=== PATIENT | male | born 1960 | race African-American/Black ===

== ENCOUNTER 2019-12-01 16:36 | Emergency (ER) | payer SELFPAY ==
--- NOTE | 2019-12-01 21:13 | ER Document Report ---
ED General - General Stated Complaint: FEVER/COUGH/CONGESTION Primary Care Provider: RICKY VILLAREAL DO [Primary Care Provider] - Follow up as needed Mode of Arrival: Ambulatory Information source: Patient Notes: Patient is a 59-year-old male presenting to the emergency department chief complaint of fevers and chills and cough for the past couple of days. Patient does report positive sick family contacts. Patient denies any travel history. Patient denies vomiting or diarrhea. Patient reports positive tobacco abuse. TRAVEL OUTSIDE OF THE [place] IN LAST 30 DAYS: No - HPI Onset: Other - 2-3 days Onset/Duration: Gradual, Worse Quality of pain: Throbbing Severity: Moderate Pain Level: 3 Associated symptoms: Chills, Nonproductive cough, Fever, Shortness of breath, Sore throat Exacerbated by: Movement, Walking, Other Relieved by: Denies Similar symptoms previously: No Recently seen / treated by doctor: No - Related Data Allergies/Adverse Reactions: Milk Containing Products Allergy (Verified 04/08/14 05:42) Past Medical History - General Information source: Patient - Social History Smoking Status: Current Every Day Smoker Cigarette use (# per day): Yes Smoking Education Provided: Yes Frequency of alcohol use: None Drug Abuse: None Lives with: Family Family History: Reviewed & Not Pertinent, CAD - Late-onset - Past Medical History Cardiac Medical History: Reports: Hx Hypercholesterolemia Denies: Hx Coronary Artery Disease, Hx Heart Attack, Hx Hypertension Pulmonary Medical History: Denies: Hx Tuberculosis Neurological Medical History: Reports: Hx Seizures Musculoskeletal Medical History: Reports Hx Musculoskeletal Deformity, Reports Hx Musculoskeletal Trauma Psychiatric Medical History: Reports: Hx Bipolar Disorder, Hx Depression - Immunizations Immunizations up to date: Yes Hx Diphtheria, Pertussis, Tetanus Vaccination: Yes Review of Systems - Review of Systems Notes: REVIEW OF SYSTEMS: CONSTITUTIONAL : Per HPI EENT: Per HPI CARDIOVASCULAR: Denies chest pain. RESPIRATORY: Per HPI GASTROINTESTINAL: Denies abdominal pain. Denies nausea, vomiting, or diarrhea. Denies constipation. GENITOURINARY: Denies difficulty urinating, painful urination, burning, frequency, or blood in urine. MUSCULOSKELETAL: Denies neck or back pain or joint pain or swelling. SKIN: Denies rash or skin lesions. HEMATOLOGIC : Denies easy bruising or bleeding. NEUROLOGICAL: Denies altered mental status or loss of consciousness. Denies headache. Denies weakness or paralysis or loss of use of either side. Denies problems with gait or speech. Denies sensory or motor loss. PSYCHIATRIC: Denies suicidal or homicidal ideations 10 Systems are negative unless otherwise specified above Physical Exam - Vital signs Vitals: Temp Pulse Resp BP Pulse Ox 102.8 F H 81 16 123/66 93 12/01/19 17:34 12/01/19 17:34 12/01/19 17:34 12/01/19 17:34 12/01/19 17:34 - Notes Notes: PHYSICAL EXAMINATION: GENERAL: Ill appearing HEAD: Atraumatic, normocephalic. EYES: Pupils equal round and reactive to light, extraocular movements intact, sclera anicteric, conjunctiva are normal. ENT: nares patent, oropharynx clear without exudates. Dry mucous membranes. NECK: Normal range of motion, supple without lymphadenopathy, no appreciable JVD LUNGS: Lungs demonstrate rhonchi to the bases worse with deep inspiration. HEART: Regular rate and rhythm without murmurs ABDOMEN: Soft, nontender, normal bowel sounds. No guarding, no rebound. No masses appreciated. EXTREMITIES: Active full range of motion, no pitting or edema. No cyanosis. 2+ pulses x4 NEUROLOGICAL: No focal neurological deficits. Moves all extremities spontaneously and on command. SKIN: Warm, Dry, and intact. Normal turgor, no rashes or lesions noted. Course - Re-evaluation Re-evalutation: 12/01/19 23:49 Patient has been reevaluated several times while in the emergency department. Patient was given Tylenol for his fever. Patient did receive guaifenesin for cough. I did explain to the patient the findings of positive influenza A. Patient is given prescription for Tamiflu and guaifenesin. Patient is recommended to follow-up with his family physician in the next several days return to the emergency department for worsening symptoms. - Vital Signs Vital signs: Temp Pulse Resp BP Pulse Ox 98.3 F 74 20 126/76 H 100 12/01/19 22:24 12/01/19 22:24 12/01/19 22:24 12/01/19 22:24 12/01/19 22:24 - Diagnostic Test Radiology reviewed: Reports reviewed Discharge - Discharge Clinical Impression: Influenza A, Cough Fever Qualifiers: Fever type: unspecified Qualified Code(s): R50.9 - Fever, unspecified Condition: Fair Disposition: HOME, SELF-CARE Instructions: Acetaminophen, Influenza ([facility]) [id number] Additional Instructions: Please rest drink plenty of fluids take Tylenol and Motrin as needed for aches pains and fever. Recommend following up with your primary care provider in the next couple of days. Prescriptions: Guaifenesin [Adult Tussin Chest Congestion] 100 mg PO Q6 PRN #120 liquid PRN Reason: Oseltamivir Phosphate [Tamiflu 75 mg Capsule] 75 mg PO BID #10 capsule Forms: Return to Work Referrals: RICKY VILLAREAL DO [Primary Care Provider] - Follow up as needed
[2019-12-01] MEDS ORDERED: ACETAMINOPHEN 325 MG TABLET PO ONE (21:14)
[2019-12-01 21:56] LABS: A TYPE INFLUENZA AG POSITIVE (NEGATIVE); B INFLUENZA AG NEGATIVE (NEGATIVE)
[2019-12-01] MEDS ORDERED: GUAIFENESIN SYRP 200 MG/10 ML UDC PO ONE (22:10)
--- NOTE | 2019-12-01 22:21 | RADIOLOGY REPORT (SQ) ---
EXAM DESCRIPTION: PA and lateral radiographs of the chest CLINICAL HISTORY: 59 years Male, cough COMPARISON: Single view of the chest July 27, 2016 FINDINGS: Lungs: Lungs are clear. No pneumonia or edema. No pneumothorax or pleural effusion. Mediastinum: Heart size is within normal limits. There is tortuosity of the thoracic aorta. Bones: Osseous structures are normal. IMPRESSION: No acute process. No significant interval change.
[2019-12-01 22:39] VITALS: BP 126/76
== END 2019-12-01 22:24 | disposition home or self-care (01) ==
LOC: ER 16:36
DX: J10.1 Influenza due to other identified influenza virus with other respiratory manifestations (principal); R50.9 Fever, unspecified; R05 Cough; R06.02 Shortness of breath; F17.210 Nicotine dependence, cigarettes, uncomplicated; Z91.011 Allergy to milk products
CPT/HCPCS: 71046; 87070; 87804; 87880; 99284

== ENCOUNTER 2019-12-03 19:06 | Observation (INO) | payer SELFPAY ==
[2019-12-04] MEDS ORDERED: LIDOCAINE 1% INJ-PF (10 MG/ML) 30 ML SDV NEB ONE (00:28)
[2019-12-04] MEDS ORDERED: IPRATROPIUM/ALBUTEROL 0.5-2.5 MG/3 ML AMPUL NEB ONE (00:28)
[2019-12-04] MEDS ORDERED: NORMAL SALINE 1000 ML 1,000 ML IV ONE (00:29)
[2019-12-04] MEDS ORDERED: ONDANSETRON HCL INJ/PF 4 MG/2 ML SDV IV ONE (00:29)
[2019-12-04] MEDS ORDERED: HYDROCODONE/ACETAMINOPHEN 5-325 MG TABLET PO ONE (00:29)
--- NOTE | 2019-12-04 00:31 | ER Document Report ---
ED Flu Like - General Chief Complaint: Flu Symptoms Stated Complaint: FLU SYMPTOMS Time Seen by Provider: 12/04/19 00:21 Notes: Patient is a 59-year-old male that comes emergency department for chief complaint of weakness, fever, cough, vomiting. Patient states that he started feeling ill approximately 5 days ago, he was seen 2 days ago and diagnosed with influenza A, he states that he cannot stop coughing and he attempted to eat and he vomited on 2 separate occasions today. He states that he was prescribed cough medicine but this was too expensive (this was actually Tamiflu which he could not get). He does smoke, denies history of COPD or asthma. He denies any diagnosed illnesses or daily medications. He states his only past medical history is eye surgery. He denies frequent alcohol or recreational drugs. TRAVEL OUTSIDE OF THE [place] IN LAST 30 DAYS: No - Related Data Allergies/Adverse Reactions: Milk Containing Products Allergy (Verified 04/08/14 05:42) Past Medical History - General Information source: Patient - Social History Smoking Status: Current Every Day Smoker Frequency of alcohol use: Social Drug Abuse: None Lives with: Family Family History: Reviewed & Not Pertinent, CAD - Late-onset Patient has suicidal ideation: No Patient has homicidal ideation: No - Past Medical History Cardiac Medical History: Reports: Hx Hypercholesterolemia Denies: Hx Coronary Artery Disease, Hx Heart Attack, Hx Hypertension Pulmonary Medical History: Denies: Hx Tuberculosis Neurological Medical History: Reports: Hx Seizures Musculoskeletal Medical History: Reports Hx Musculoskeletal Deformity, Reports Hx Musculoskeletal Trauma Psychiatric Medical History: Reports: Hx Bipolar Disorder, Hx Depression - Immunizations Immunizations up to date: Yes Hx Diphtheria, Pertussis, Tetanus Vaccination: Yes Review of Systems - Review of Systems Constitutional: See HPI EENT: No symptoms reported Cardiovascular: No symptoms reported Respiratory: See HPI Gastrointestinal: See HPI Genitourinary: No symptoms reported Male Genitourinary: No symptoms reported Musculoskeletal: No symptoms reported Skin: No symptoms reported Hematologic/Lymphatic: No symptoms reported Neurological/Psychological: No symptoms reported Physical Exam - Vital signs Vitals: Pulse Ox 92 12/03/19 19:53 - Notes Notes: GENERAL: Ill-appearing but still alert and cooperative HEAD: Normocephalic, atraumatic. EYES: Pupils equal, round, and reactive to light. Extraocular movements intact. ENT: Oral mucosa moist, tongue midline. Oropharynx unremarkable. Airway patent. Mild nasal congestion, nontender sinuses NECK: Full range of motion. Supple. Trachea midline. LUNGS: Frequent cough, scattered expiratory wheezes and coarse rhonchi. No respiratory distress. HEART: Regular rate and rhythm. No murmur ABDOMEN: Soft, non-tender. Non-distended. EXTREMITIES: Moves all 4 extremities spontaneously. No edema, normal radial and dorsalis pedis pulses bilaterally. No cyanosis. BACK: no cervical, thoracic, lumbar midline tenderness. No saddle anesthesia, normal distal neurovascular exam. Moves all extremities in full range of motion. NEUROLOGICAL: Alert and oriented x3. Normal speech. Cranial nerves II through XII grossly intact. PSYCH: Slightly irritable SKIN: Flushed, warm Course - Re-evaluation Re-evalutation: Patient with coarse rhonchi, frequent cough, he is somewhat ill-appearing. His vital signs are reassuring, he is not currently hypoxic on room air, he is not tachycardic or hypotensive. Chest x-ray indicates worsening, now shows pneumonia, patient was positive for influenza A 2 days ago. CBC does not show leukocytosis but does show 7% bandemia. Chemistry nonspecific, lactic acid not elevated, venous blood gas unremarkable. On reevaluation after treatments, fluids, patient is improved. He was given Tamiflu, Rocephin, azithromycin. Patient does state he feels improved, however he is still very weak, patient can barely get up and walk across the room which is very abnormal for him. Because of his extreme weakness, worsening difficulty breathing, abnormal lung sounds, and development of influenza/pneumonia discussed admission. Patient concerned about going home, very agreeable with admission. I discussed with Dr. Crouch. Discussed with Dr. Mo, patient accepted to the medical floor full admission. - Vital Signs Vital signs: Temp Pulse Resp BP Pulse Ox 98.5 F 65 20 150/90 H 95 12/04/19 06:37 12/04/19 06:37 12/04/19 06:37 12/04/19 06:37 12/04/19 06:37 - Laboratory Result Diagrams: 12/03/19 19:55 12/03/19 19:55 Laboratory results interpreted by me: 12/03/19 12/03/19 12/04/19 19:55 19:55 02:19 RDW 14.9 H Band Neutrophils % 7 H VBG pH 7.44 H VBG pCO2 34.1 L Sodium 136.6 L AST 114 H ALT 51 H Discharge - Discharge Clinical Impression: Influenza A, Wheezing, Influenza and pneumonia, Weakness Condition: Stable Disposition: ADMITTED INPATIENT Admitting Provider: Chepe (Hospitalist) Unit Admitted: Medical Floor
[2019-12-04 00:44] LABS: HEMOGLOBIN 14.3 g/dL (13.5-17.0); MEAN CORPUSCULAR HEMOGLOBIN 27.1 pg (27.0-33.4); MEAN CORPUSCULAR HGB CONC 33.3 g/dL (32.0-36.0); MEAN CORPUSCULAR VOLUME 81 fl (80-97); PLATELET COUNT 186 10^3/uL (150-450); RED BLOOD COUNT 5.28 10^6/uL (4.35-5.55); RED CELL DISTRIBUTION WIDTH 14.9 % (11.5-14.0); WHITE BLOOD COUNT 7.1 10^3/uL (4.0-10.5)
[2019-12-04 00:52] LABS: ALBUMIN 3.9 g/dL (3.5-5.0); ALKALINE PHOSPHATASE 74 U/L (38-126); ANION GAP 7 (5-19); ASPARTATE AMINO TRANSFERASE 114 U/L (17-59); BILIRUBIN,DIRECT 0.3 mg/dL (0.0-0.4); BILIRUBIN,TOTAL 0.5 mg/dL (0.2-1.3); BLOOD UREA NITROGEN 18 mg/dL (7-20); CARBON DIOXIDE 28 mmol/L (22-30); CHLORIDE 102 mmol/L (98-107); GLUCOSE 107 mg/dL (75-110); POTASSIUM 3.8 mmol/L (3.6-5.0); TOTAL PROTEIN 7.6 g/dL (6.3-8.2)
[2019-12-04 01:04] LABS: ABSOLUTE LYMPHOCYTES# (MANUAL) 1.4 10^3/uL (0.5-4.7); ABSOLUTE MONOCYTES # (MANUAL) 0.4 10^3/uL (0.1-1.4); ANISOCYTOSIS 1+; BAND NEUTROPHILS % (MANUAL) 7 % (3-5); BASOPHILS % (MANUAL) 0 % (0-2); EOSINOPHILS % (MANUAL) 0 % (0-6); LYMPHOCYTES % (MANUAL) 17 % (13-45); MONOCYTES % (MANUAL) 5 % (3-13); PLATELET COMMENT ADEQUATE; POIKILOCYTOSIS 1+; SEGMENTED NEUTROPHILS % (MAN) 68 % (42-78); TARGET CELLS 1+; TOTAL CELLS COUNTED 100; TOXIC VACUOLATION PRESENT
--- NOTE | 2019-12-04 01:05 | RADIOLOGY REPORT (SQ) ---
EXAM DESCRIPTION: XR CHEST 2 VIEWS COMPLETED DATE/TME: 12/04/2019 00:28 EXAM DESCRIPTION: CLINICAL HISTORY: worsening cough x 1 week, fevers COMPARISON: 12/01/2019 FINDINGS: Frontal and lateral views of the chest. Cardiomediastinal silhouette: Normal size and contour. Lungs: Interval development of patchy bilateral midlung airspace opacities, more confluent on the right than the left. No pneumothorax or large effusion. Bones: No acute osseous abnormality. Upper abdomen: No abnormality identified. IMPRESSION: 1. Interval development mild patchy bilateral midlung airspace opacities, more confluent on the right than the left. These are concerning for bronchopneumonia. Continued radiographic follow-up to resolution recommended.
[2019-12-04] MEDS ORDERED: CEFTRIAXONE 1 GM/D5W RTU 1 GM/50 ML RTUPB IV ONE (01:39)
[2019-12-04] MEDS ORDERED: AZITHROMYCIN 250 MG TABLET PO ONE (01:39)
[2019-12-04] MEDS ORDERED: METHYLPREDNISOLONE INJ 125 MG/2 ML SDV IV ONE (01:40)
[2019-12-04] MEDS ORDERED: OSELTAMIVIR PHOSPHATE 75 MG CAPSULE PO ONE (01:58)
[2019-12-04 02:33] LABS: VENOUS BLOOD BASE EXCESS -0.8 mmol/L; VENOUS BLOOD HCO3 22.7 mmol/L (20-32); VENOUS BLOOD PCO2 34.1 mmHg (35-63); VENOUS BLOOD PH 7.44 (7.30-7.42)
[2019-12-04] MEDS ORDERED: IPRATROPIUM/ALBUTEROL 0.5-2.5 MG/3 ML AMPUL NEB PRN (04:01)
[2019-12-04] MEDS ORDERED: ACETAMINOPHEN 325 MG TABLET PO PRN (04:01)
[2019-12-04] MEDS ORDERED: MAGNESIUM HYDROXIDE SUSP 30 ML UDCUP PO PRN (04:08)
[2019-12-04] MEDS ORDERED: ONDANSETRON HCL INJ/PF 4 MG/2 ML SDV IV PRN (04:08)
[2019-12-04] MEDS ORDERED: MAG HYDROX/AL HYDROX/SIMETH SUSP 30 ML UDCUP PO PRN (04:08)
[2019-12-04] MEDS ORDERED: KETOROLAC TROMETHAMINE INJ/PF 30 MG/1 ML SDV IV PRN (04:08)
--- NOTE | 2019-12-04 04:30 | PDOC H&P ---
History of Present Illness Admission Date/PCP: RICKY VILLAREAL DO Patient complains of: Worsening cough with nausea and vomiting History of Present Illness: MARIBELL GARCÍA is a 59 year old male who was seen in the emergency department 2 days ago and was diagnosed with influenza A. He states that he has not been feeling better in fact he has been feeling worse. In addition to a nonproductive cough he has been having nausea, vomiting and diarrhea. He reports fever and chills as well. Interestingly, he does not have an elevated white blood cell count but there are 7% bands. AST and ALT are slightly elevated. Lactic acid is normal. The patient will be admitted to the hospitalist service for influenza A with secondary pneumonia. The pneumonia is bilateral. We will continue his Tamiflu and add dual antibiotic therapy with Rocephin and azithromycin. Past Medical History Cardiac Medical History: Reports: Hyperlipidema Denies: Coronary Artery Disease, Myocardial Infarction, Hypertension Pulmonary Medical History: Denies: Tuberculosis Neurological Medical History: Reports: Seizures Endocrine Medical History: Denies: Diabetes Mellitus Type 2, Hypothyroidism Renal/ Medical History: Denies: Chronic Kidney Disease Malignancy Medical History: Reports: None GI Medical History: Denies: Cirrhosis, Gastroesophageal Reflux Disease, Hepatitis, Peptic Ulcer Disease Musculoskeltal Medical History: Denies: Arthritis, Gout Skin Medical History: Denies: Eczema, Psoriasis Psychiatric Medical History: Reports: Bipolar Disorder, Depression Hematology: Denies: Anemia Past Surgical History Past Surgical History: Reports: Other - Lens implant left eye Social History Information Source: Patient Lives with: Spouse/Significant other Smoking Status: Current Every Day Smoker Electronic Cigarette use?: No Frequency of Alcohol Use: None Hx Recreational Drug Use: No Hx Prescription Drug Abuse: No - Advance Directive Resuscitation Status: Full Code Surrogate healthcare decision maker:: The patient's would be the designated decision maker. Family History Family History: CAD - Late-onset, DM, Hypertension, Malignancy, Other - End- stage renal disease Parental Family History Reviewed: Yes Children Family History Reviewed: Yes Sibling(s) Family History Reviewed.: Yes Medication/Allergy Home Medications: Quetiapine Fumarate [Seroquel 100 mg Tablet] 350 mg PO DAILY 12/17/12 Hydrocodone Bit/Homatropine [Hycodan Syrup 5-1.5 mg/ 5 ml Ud Cup] 10 ml PO ASDIR PRN #240 ml 08/21/15 Prednisone [Deltasone 20 mg Tablet] 60 mg PO DAILY #15 tablet 08/21/15 Tamsulosin HCl [Flomax] 0.4 mg PO DAILY #10 cap.er.24h 07/12/19 Guaifenesin [Adult Tussin Chest Congestion] 100 mg PO Q6 PRN #120 liquid 01/16 Oseltamivir Phosphate [Tamiflu 75 mg Capsule] 75 mg PO BID #10 capsule 12/01/19 Allergies/Adverse Reactions: Milk Containing Products Allergy (Verified 04/08/14 05:42) Review of Systems Constitutional: PRESENT: anorexia, fever(s). ABSENT: night sweats Eyes: ABSENT: visual disturbances Ears: ABSENT: hearing changes Nose, Mouth, and Throat: ABSENT: headache(s), mouth pain, sore throat Cardiovascular: ABSENT: chest pain, edema, palpitations Respiratory: PRESENT: cough. ABSENT: sputum Gastrointestinal: PRESENT: diarrhea, nausea, vomiting. ABSENT: coffee ground em esis, heartburn, hematemesis, hematochezia Genitourinary: ABSENT: dysuria, hematuria Musculoskeletal: ABSENT: deformity, joint swelling Integumentary: ABSENT: diaphoresis, erythema, pruritus, rash Neurological: ABSENT: abnormal speech, confusion, memory loss, syncope, tremor(s) Psychiatric: ABSENT: anxiety, depression Hematologic/Lymphatic: ABSENT: easy bleeding, easy bruising Physical Exam Vital Signs: Temp Pulse Resp BP Pulse Ox 99.1 F 20 150/92 H 99 12/04/19 01:00 12/04/19 01:01 12/04/19 01:00 12/04/19 01:01 Intake & Output 12/02/19 12/03/19 12/04/19 06:59 06:59 06:59 Intake Total 1050 Balance 1050 General appearance: PRESENT: cooperative, mild distress, thin Head exam: PRESENT: atraumatic, normocephalic Eye exam: PRESENT: conjunctiva pink, EOMI, PERRLA. ABSENT: scleral icterus Ear exam: PRESENT: normal external ear exam. ABSENT: bleeding, drainage Mouth exam: PRESENT: dry mucosa, tongue midline Throat exam: ABSENT: post pharyngeal erythema Neck exam: PRESENT: lymphadenopathy. ABSENT: carotid bruit, JVD Respiratory exam: PRESENT: rhonchi - Bilateral, symmetrical, unlabored, wheezes - Occasional expiratory wheeze. ABSENT: accessory muscle use, prolonged expiratory phas, rales, tachypnea Cardiovascular exam: PRESENT: RRR, +S1, +S2, other - Possible murmur. Difficult to auscultate due to loud breath sounds. Pulses: PRESENT: normal radial pulses, normal dorsalis pedis pul GI/Abdominal exam: PRESENT: normal bowel sounds, soft. ABSENT: distended, guarding, mass, tenderness Rectal exam: PRESENT: deferred Gentrourinary exam: ABSENT: indwelling catheter Extremities exam: ABSENT: pedal edema Musculoskeletal exam: PRESENT: ambulatory, full ROM, normal inspection. ABSENT: deformity Neurological exam: PRESENT: alert, awake, oriented to person, oriented to place, oriented to time, oriented to situation, CN II-XII grossly intact. ABSENT: motor sensory deficit Psychiatric exam: PRESENT: appropriate affect, normal mood. ABSENT: agitated, anxious Focused psych exam: ABSENT: delusional, internal stimuli, pressured speech, restlessness Skin exam: PRESENT: dry, normal color, warm. ABSENT: rash Results Laboratory Results: 12/03/19 19:55 12/03/19 19:55 12/03/19 12/03/19 12/04/19 19:55 19:55 02:19 WBC 7.1 RBC 5.28 Hgb 14.3 Hct 43.0 MCV 81 MCH 27.1 MCHC 33.3 RDW 14.9 H Plt Count 186 Seg Neutrophils % Not Reportable VBG pH VBG pCO2 VBG HCO3 VBG Base Excess Sodium 136.6 L Potassium 3.8 Chloride 102 Carbon Dioxide 28 Anion Gap 7 BUN 18 Creatinine 0.67 Est GFR ( Amer) > 60 Glucose 107 Lactic Acid 1.4 Calcium 9.0 Total Bilirubin 0.5 AST 114 H Alkaline Phosphatase 74 Total Protein 7.6 Albumin 3.9 12/04/19 02:19 WBC RBC Hgb Hct MCV MCH MCHC RDW Plt Count Seg Neutrophils % VBG pH 7.44 H VBG pCO2 34.1 L VBG HCO3 22.7 VBG Base Excess -0.8 Sodium Potassium Chloride Carbon Dioxide Anion Gap BUN Creatinine Est GFR ( Amer) Glucose Lactic Acid Calcium Total Bilirubin AST Alkaline Phosphatase Total Protein Albumin Impressions: Chest X-Ray 12/04/19 00:28 IMPRESSION: 1. Interval development mild patchy bilateral midlung airspace opacities, more confluent on the right than the left. These are concerning for bronchopneumonia. Continued radiographic follow-up to resolution recommended. Assessment and Plan - Diagnosis (1) Pneumonia of both lungs due to influenza A virus Qualifiers: Lung location: unspecified part of lung Qualified Code(s): J10.00 - Influ dean due to other identified influenza virus with unspecified type of pneumonia Is this a current diagnosis for this admission?: Yes Plan: 12/04/2019 The patient tested positive for influenza A just 2 days ago. He now has diffuse bilateral infiltrates by x-ray and despite a normal white blood cell count he has 7% bands. This could be a viral pneumonia but there could also be a secondary bacterial pneumonia present. In addition to the Tamiflu he will receive ceftriaxone and azithromycin. He will also have mucolytic's available. (2) Influenza A Is this a current diagnosis for this admission?: Yes Plan: 12/04/2019 The patient was assessed in the emergency department 2 days ago. He tested positive for influenza A. He was started on Tamiflu and I will continue this r egimen for this hospitalization as well. (3) Cough Is this a current diagnosis for this admission?: Yes Plan: 12/04/2019 The patient reports a nonproductive cough. He does note that from the coughing he has some discomfort at the costal margin on the right side. Guaifenesin will be available as well as anti-inflammatory medications to treat what is most likely muscle strain from coughing. (4) Fever Qualifiers: Fever type: due to other condition Qualified Code(s): R50.81 - Fever presenting with conditions classified elsewhere Is this a current diagnosis for this admission?: Yes Plan: 12/04/2019 The patient reports fever. In the emergency department his T-max is only 99.1. Antipyretic medication will be available. (5) Elevated transaminase level Is this a current diagnosis for this admission?: Yes Plan: 12/04/2019 The patient's AST and ALT levels are elevated. This is most likely due to the ongoing infection. There is no history of liver disease. I did review the Tamiflu package insert and it has been known to irritate the liver and cause hepatitis. We will need to monitor his enzymes as they were normal the last andrea e he was tested. (6) Hyponatremia Is this a current diagnosis for this admission?: Yes Plan: The patient serum sodium is just below the lower limit normal. He will be getting IV fluids. We will recheck his serum chemistries to monitor sodium level. (7) Tobacco dependence due to cigarettes Is this a current diagnosis for this admission?: Yes Plan: 12/04/2019 A nicotine patch will be utilized. The patient reports that his not had a cigarette since this illness began. There is no documented diagnosis of chronic obstructive pulmonary disease but with his smoking history and the infiltrates on x-ray I have ordered scheduled as well as as needed nebulizer treatments. (8) Bipolar 2 disorder Is this a current diagnosis for this admission?: Yes Plan: 12/04/2019 Bipolar disorder is listed. His medication list includes Seroquel. He did not report this information to me. His was present when I reviewed his medications and she did not report the use of Seroquel. This will need to be followed up and with a history of bipolar disorder, prescribed if needed. - Time Time Spent with patient: 35 or more minutes Smoking Cessation Education: 3 to 10 minutes Medications reviewed and adjusted accordingly: Yes Anticipated discharge: Home - Inpatient Certification Based on my medical assessment, after consideration of the patient's comorbidities, presenting symptoms, or acuity I expect that the services needed warrant INPATIENT care.: Yes I certify that my determination is in accordance with my understanding of Medic are's requirements for reasonable and necessary INPATIENT services [42 CFR 412.3e].: Yes Medical Necessity: Failure to Improve With Outpatient Therapy, Need For IV Fluids, Need for Pain Control, Need for IV Antibiotics Post Hospital Care: D/C Band Saw [employer]ner Documentation
[2019-12-04] MEDS: PANTOPRAZOLE SODIUM 40 MG TABLET.DR PO SCH (06:53)
[2019-12-04] MEDS: NORMAL SALINE 1000 ML 1,000 ML IV PRN ×2 (06:54→17:59)
[2019-12-04 06:56] LABS: ALBUMIN 3.4 g/dL (3.5-5.0); ALKALINE PHOSPHATASE 66 U/L (38-126); ASPARTATE AMINO TRANSFERASE 85 U/L (17-59); BILIRUBIN,TOTAL 0.5 mg/dL (0.2-1.3); TOTAL PROTEIN 6.3 g/dL (6.3-8.2)
[2019-12-04] MEDS: IPRATROPIUM/ALBUTEROL 0.5-2.5 MG/3 ML AMPUL NEB SCH ×2 (08:21→15:45)
--- NOTE | 2019-12-04 08:37 | EKG REPORT ---
SEVERITY:- BORDERLINE ECG - SINUS RHYTHM PROBABLE LEFT ATRIAL ABNORMALITY MINIMAL ST ELEVATION, ANTEROLATERAL LEADS : Confirmed by: Edinson Fontanez MD 04-Dec-2019 08:36:29
[2019-12-04] MEDS: NICOTINE 21 MG/24 HR PATCH.TD24 TD SCH (09:42)
[2019-12-04] MEDS: GUAIFENESIN 600 MG TABLET.SA PO SCH ×2 (09:42→21:14)
[2019-12-04] MEDS: METHYLPREDNISOLONE INJ 40 MG/1 ML SDV IV SCH ×2 (09:42→21:14)
[2019-12-04] MEDS: ENOXAPARIN SODIUM INJ 40 MG/0.4 ML DISP.SYRIN SUBCUT SCH (09:47)
[2019-12-04] MEDS: OSELTAMIVIR PHOSPHATE 75 MG CAPSULE PO SCH ×2 (10:11→17:58)
[2019-12-04] MEDS ORDERED: AZITHROMYCIN 500 MG in DEXTROSE 5%-WATER 250 ML IV SCH (22:00)
[2019-12-04] MEDS ORDERED: CEFTRIAXONE 1 GM/D5W RTU 1 GM/50 ML RTUPB IV SCH (22:00)
[2019-12-04] MEDS ORDERED: TRAZODONE HCL 50 MG TABLET PO PRN (23:05)
[2019-12-05] MEDS: IPRATROPIUM/ALBUTEROL 0.5-2.5 MG/3 ML AMPUL NEB SCH ×2 (00:58→07:56)
[2019-12-05] MEDS: NORMAL SALINE 1000 ML 1,000 ML IV PRN (05:12)
[2019-12-05] MEDS: PANTOPRAZOLE SODIUM 40 MG TABLET.DR PO SCH (05:17)
[2019-12-05 06:22] LABS: ABSOLUTE LYMPHOCYTES (AUTO) 0.8 10^3/uL (0.5-4.7); ABSOLUTE MONOCYTES (AUTO) 1.1 10^3/uL (0.1-1.4); ABSOLUTE NEUT (AUTO) 11.2 10^3/uL (1.7-8.2); BASOPHILS % (AUTO) 0.2 % (0-2); HEMATOCRIT 35.1 % (37.9-51.0); LYMPHOCYTES % (AUTO) 6.1 % (13-45); MEAN CORPUSCULAR HEMOGLOBIN 26.4 pg (27.0-33.4); MEAN CORPUSCULAR VOLUME 80 fl (80-97); MONOCYTES % (AUTO) 8.7 % (3-13); PLATELET COUNT 204 10^3/uL (150-450); RED BLOOD COUNT 4.38 10^6/uL (4.35-5.55); RED CELL DISTRIBUTION WIDTH 14.7 % (11.5-14.0); TOTAL CELLS COUNTED % (AUTO) 100 %; WHITE BLOOD COUNT 13.2 10^3/uL (4.0-10.5)
[2019-12-05 06:43] LABS: HEMOGLOBIN 11.6 g/dL (13.5-17.0)
[2019-12-05] MEDS: GUAIFENESIN 600 MG TABLET.SA PO SCH (09:41)
[2019-12-05] MEDS: METHYLPREDNISOLONE INJ 40 MG/1 ML SDV IV SCH (09:41)
[2019-12-05] MEDS: OSELTAMIVIR PHOSPHATE 75 MG CAPSULE PO SCH (09:42)
[2019-12-05] MEDS: ENOXAPARIN SODIUM INJ 40 MG/0.4 ML DISP.SYRIN SUBCUT SCH (09:42)
[2019-12-05] MEDS: NICOTINE 21 MG/24 HR PATCH.TD24 TD SCH (09:42)
[2019-12-05 11:03] VITALS: BP 150/90
--- NOTE | 2019-12-05 17:50 | PDOC DISCHARGE SUMMARY ---
Impression - Admit/DC Date/PCP Admission Date/Primary Care Provider: 12/04/19 04:44 RICKY VILLAREAL DO Discharge Date: 12/05/19 - Additional Information Resuscitation Status: Full Code Discharge Diet: Cardiac Discharge Activity: Activity As Tolerated, Energy Conservation Referrals: RICKY VILLAREAL DO [Primary Care Provider] - Follow up as needed Prescriptions: Levofloxacin [Levaquin 500 mg Tablet] 500 mg PO DAILY #5 tablet Oseltamivir Phosphate [Tamiflu 75 mg Capsule] 75 mg PO BID #10 capsule Home Medications: Quetiapine Fumarate [Seroquel 100 mg Tablet] 350 mg PO DAILY 12/17/12 Tamsulosin HCl [Flomax] 0.4 mg PO DAILY #10 cap.er.24h 07/12/19 Levofloxacin [Levaquin 500 mg Tablet] 500 mg PO DAILY #5 tablet 12/05/19 Oseltamivir Phosphate [Tamiflu 75 mg Capsule] 75 mg PO BID #10 capsule 12/05/19 History of Present Illiness History of Present Illness: MARIBLEL GARCÍA is a 59 year old male who was seen in the emergency department 2 days ago and was diagnosed with influenza A. He states that he has not been feeling better in fact he has been feeling worse. In addition to a nonproductive cough he has been having nausea, vomiting and diarrhea. He reports fever and chills as well. Interestingly, he does not have an elevated white blood cell count but there are 7% bands. AST and ALT are slightly elevated. Lactic acid is normal. The patient will be admitted to the hospitalist service for influenza A with secondary pneumonia. The pneumonia is bilateral. We will continue his Tamiflu and add dual antibiotic therapy with Rocephin and azithromycin. Hospital Course Hospital Course: As it turns out, the patient never got his prescription for Tamiflu filled. He said that it was given cost him $175 because he does not have insurance. He never really look that bad while he was here. We got him a coupon but let him get his Tamiflu and a prescription for Levaquin for just over $40 combined. He will complete his course of each medication at home. He was told to stay home for the next week so he does not go out contagious. He verbalizes understanding. His labs and examination were reassuring and he was discharged in stable condition. Physical Exam Vital Signs: Temp Pulse Resp BP Pulse Ox 98.0 F 93 16 150/90 H 94 12/05/19 11:01 12/05/19 11:01 12/05/19 11:01 12/05/19 11:01 12/05/19 11:01 Pulse Oximeter Continuous Start: 12/04/19 04:02 Freq: RTQ4 Status: Discharge Protocol: Document 12/05/19 07:56 LDA (Rec: 12/05/19 10:04 LDA [id number]) Pulse Oximetry Assessment Oxygen Saturation (92-100) 99 Oxygen Delivery Method Room Air Fraction of Inspired Oxygen (FIO2) 21 Equipment Usage Equipment in Use Continuous SpO2 Machine # 3 Intake & Output 12/04/19 12/05/19 12/06/19 05:59 06:59 06:59 Intake Total 767 Output Total Balance 767 Weight General appearance: PRESENT: no acute distress, cooperative, disheveled Respiratory exam: PRESENT: clear to auscultation mary, symmetrical, unlabored. ABSENT: accessory muscle use, chest wall tenderness, crackles, prolonged expiratory phas, retraction, rhonchi, tachypnea, wheezes Cardiovascular exam: PRESENT: RRR, +S1, +S2 Pulses: PRESENT: normal carotid pulses Vascular exam: PRESENT: normal capillary refill GI/Abdominal exam: PRESENT: normal bowel sounds, soft. ABSENT: distended, guarding, rebound, tenderness Extremities exam: ABSENT: clubbing, pedal edema Musculoskeletal exam: PRESENT: normal inspection. ABSENT: deformity Neurological exam: PRESENT: alert, awake, oriented to person, oriented to place, oriented to situation Psychiatric exam: PRESENT: appropriate affect, normal mood Skin exam: PRESENT: dry, warm Results Laboratory Results: WBC 13.2 10^3/uL (4.0-10.5) H 12/05/19 05:08 RBC 4.38 10^6/uL (4.35-5.55) 12/05/19 05:08 Hgb 11.6 g/dL (13.5-17.0) L D 12/05/19 05:08 Hct 35.1 % (37.9-51.0) L 12/05/19 05:08 MCV 80 fl (80-97) 12/05/19 05:08 MCH 26.4 pg (27.0-33.4) L 12/05/19 05:08 MCHC 33.0 g/dL (32.0-36.0) 12/05/19 05:08 RDW 14.7 % (11.5-14.0) H 12/05/19 05:08 Plt Count 204 10^3/uL (150-450) 12/05/19 05:08 Lymph % (Auto) 6.1 % (13-45) L 12/05/19 05:08 [place] % (Auto) 8.7 % (3-13) 12/05/19 05:08 Eos % (Auto) 0.0 % (0-6) 12/05/19 05:08 Baso % (Auto) 0.2 % (0-2) 12/05/19 05:08 Absolute Neuts (auto) 11.2 10^3/uL (1.7-8.2) H 12/05/19 05:08 Absolute Lymphs (auto) 0.8 10^3/uL (0.5-4.7) 12/05/19 05:08 Absolute Monos (auto) 1.1 10^3/uL (0.1-1.4) 12/05/19 05:08 Absolute Eos (auto) 0.0 10^3/uL (0.0-0.6) 12/05/19 05:08 Absolute Basos (auto) 0.0 10^3/uL (0.0-0.2) 12/05/19 05:08 Total Counted 100 12/03/19 19:55 Seg Neutrophils % 85.0 % (42-78) H 12/05/19 05:08 Seg Neuts % (Manual) 68 % (42-78) 12/03/19 19:55 Band Neutrophils % 7 % (3-5) H 12/03/19 19:55 Lymphocytes % (Manual) 17 % (13-45) 12/03/19 19:55 Atypical Lymphs % 3 % (0) 12/03/19 19:55 Monocytes % (Manual) 5 % (3-13) 12/03/19 19:55 Eosinophils % (Manual) 0 % (0-6) 12/03/19 19:55 Basophils % (Manual) 0 % (0-2) 12/03/19 19:55 Abs Neuts (Manual) 5.3 10^3/uL (1.7-8.2) 12/03/19 19:55 Abs Lymphs (Manual) 1.4 10^3/uL (0.5-4.7) 12/03/19 19:55 Abs Monocytes (Manual) 0.4 10^3/uL (0.1-1.4) 12/03/19 19:55 Absolute Eos (Manual) 0.0 10^3/uL (0.0-0.6) 12/03/19 19:55 Abs Basophils (Manual) 0.0 10^3/uL (0.0-0.2) 12/03/19 19:55 Toxic Vacuolation PRESENT 12/03/19 19:55 Platelet Comment ADEQUATE 12/03/19 19:55 Poikilocytosis 1+ 12/03/19 19:55 Anisocytosis 1+ 12/03/19 19:55 Target Cells 1+ 12/03/19 19:55 VBG pH 7.44 (7.30-7.42) H 12/04/19 02:19 VBG pCO2 34.1 mmHg (35-63) L 12/04/19 02:19 VBG HCO3 22.7 mmol/L (20-32) 12/04/19 02:19 VBG Base Excess -0.8 mmol/L 12/04/19 02:19 Sodium 136.6 mmol/L (137-145) L 12/03/19 19:55 Potassium 3.8 mmol/L (3.6-5.0) 12/03/19 19:55 Chloride 102 mmol/L (98-107) 12/03/19 19:55 Carbon Dioxide 28 mmol/L (22-30) 12/03/19 19:55 Anion Gap 7 (5-19) 12/03/19 19:55 BUN 18 mg/dL (7-20) 12/03/19 19:55 Creatinine 0.67 mg/dL (0.52-1.25) 12/03/19 19:55 Est GFR ( Amer) > 60 (>60) 12/03/19 19:55 Est GFR (MDRD) Non-Af > 60 (>60) 12/03/19 19:55 Glucose 107 mg/dL (75-110) 12/03/19 19:55 Lactic Acid 1.4 mmol/L (0.7-2.1) 12/04/19 02:19 Calcium 9.0 mg/dL (8.4-10.2) 12/03/19 19:55 Total Bilirubin 0.5 mg/dL (0.2-1.3) 12/04/19 06:19 Direct Bilirubin 0.0 mg/dL (0.0-0.4) 12/04/19 06:19 Neonat Total Bilirubin Not Reportable 12/04/19 06:19 Neonat Direct Bilirubin Not Reportable 12/04/19 06:19 Neonat Indirect Bili Not Reportable 12/04/19 06:19 AST 85 U/L (17-59) H 12/04/19 06:19 ALT 45 U/L (<50) 12/04/19 06:19 Alkaline Phosphatase 66 U/L (38-126) 12/04/19 06:19 Total Protein 6.3 g/dL (6.3-8.2) 12/04/19 06:19 Albumin 3.4 g/dL (3.5-5.0) L 12/04/19 06:19 Impressions: Chest X-Ray 12/04/19 00:28 IMPRESSION: 1. Interval development mild patchy bilateral midlung airspace opacities, more confluent on the right than the left. These are concerning for bronchopneumonia. Continued radiographic follow-up to resolution recommended. Plan Time Spent: Greater than 30 Minutes Stroke Is this a Stroke Patient?: No Acute Heart Failure - Is this a Heart Failure Patient?: No
== END 2019-12-05 11:30 | disposition home or self-care (01) ==
LOC: ER 19:06 → EH 12-04 04:44 → 3S 12-04 06:30
PROVIDERS: ADMIT Hospitalist; ATTEND Hospitalist
DX: J09.X1 Influenza due to identified novel influenza A virus with pneumonia (principal); F17.210 Nicotine dependence, cigarettes, uncomplicated; F31.81 Bipolar II disorder; E87.1 Hypo-osmolality and hyponatremia; R53.1 Weakness; R74.0 Nonspecific elevation of levels of transaminase and lactic acid dehydrogenase [LDH]; Z82.49 Family history of ischemic heart disease and other diseases of the circulatory system
CPT/HCPCS: 93005; 94640 ×3; 99285; 96361; 96375; 96365; 36415 ×2; 87040; 83605; 85025 ×2; 80076; 80053; 82803; 71046; 93010; 94762 ×2; 99406; G0378 ×3; J3490 ×7; J2920 ×2; J2930; J1650 ×2; J2405; J7060; J7030 ×2; J0456; J0696; J7620 ×2

== ENCOUNTER → 2020-06-27 | Outpatient (CLI) | payer MEDICAID ==
--- NOTE | 2020-06-27 18:42 | XCELERA REPORT ---
[address] [address] Transthoracic Echocardiogram Report Name: MARIBELL GARCÍA Age: 59 yrs Gender: Male : 1960 Patient Status: Outpatient Patient Location: [facility] Study Date: 06/27/2020 07:49 AM Height: 66 in Weight: 130 lb BSA: 1.7 m2 Reason For Study: HEART MURMUR Ordering Physician: RICKY VILLAREAL Performed By: Berenice Coleman Interpretation Summary No significant posterior pericardial effusion. Normal aortic root 35 mm. AV valve configuration 3 cusps, with calcified NC cusp, with no and no AR. Mild mitral annular calcification. No MS, No MVP. Mild central MR jet with no left atrial enlargement. No LVH(septum 10 mm, PW 11 mm)., Biplane LVEF 57%, no diastolic dysfunction by TDI.. Segmental regional wall motion abnormality seen as inferoseptal and lateral wall hypokinesis. No LV enlargement (LVESD 36 mm). Tricuspid valve, mild TV regurgitation., trace [place]. Right atrium and RV both normal size. TAPSE is normal. no RVSD. RVSP is 25mm Hg. No ASD. IVC not dilated. Summary of findings = normal 3 cusps AV configuration but NC cusp is calcified, may be cause of heart murmur even though no /AR. Mild MAC, no MS/ mild MR, no LA enlargement. No LVH , normal LVEF 57%, with no Diastolic Dysfunction by TDI. Mild regional wall motion abnormality as in IS and Lat wall hypokinesis. Normal R heart, pulm. HTN not assessed, RVSP not calculated by personnel technician. Mild MR and TR mild (physiological). Dr Edinson Fontanez. MMode/2D Measurements & Calculations RVDd: 2.4 cm LVIDd: 4.9 cm FS: 25.2 % Ao root diam: IVSd: 0.97 cm LVIDs: 3.6 cm EDV(Teich): 2.8 cm LVPWd: 1.1 cm 111.7 ml Ao root area: ESV(Teich): 56.2 ml 6.4 cm2 LA dimension: EF(Teich): 49.6 % 3.5 cm LVLd ap4: 7.8 cm SV(MOD-sp4): EDV(MOD-sp4): 47.0 ml 101.0 ml LVLs ap4: 6.6 cm ESV(MOD-sp4): 54.0 ml EF(MOD-sp4): 46.5 % Doppler Measurements & Calculations MV E max kanwal: MV P1/2t max kanwal: Ao V2 max: LV V1 max P.6 cm/sec 118.3 cm/sec 113.8 cm/sec 2.7 mmHg MV A max kanwal: MV P1/2t: 42.5 msec Ao max PG: LV V1 max: 93.1 cm/sec MVA(P1/2t): 5.2 cm2 5.2 mmHg 82.3 cm/sec MV E/A: 1.3 MV dec slope: 816.0 cm/sec2 PA V2 max: PI end-d kanwal: TR max kanwal: MV P1/2t-pr_phl: 60.0 cm/sec 118.1 cm/sec 231.7 cm/sec 41.1 msec PA max P.4 mmHg TR max P.5 mmHg I WMSI = 1.38 % Normal = 63 Segments Size X - Cannot 2 - 4 - 1-2 small Interpret 1 - Normal Hypokinetic 3 - AkineticDyskinetic 3-5 moderate 5 - 6-14 large Aneurysmal 15-16 diffuse : RICKY VILLAREAL Andre
== END ==
LOC: SP 07:33
PROVIDERS: ATTEND Family Medicine
DX: R01.1 Cardiac murmur, unspecified (principal)
CPT/HCPCS: 93306

== ENCOUNTER → 2020-10-16 | Outpatient (CLI) | payer MEDICAID ==
--- NOTE | 2020-10-16 12:38 | RADIOLOGY REPORT (SQ) ---
EXAM DESCRIPTION: CHEST 2 VIEWS IMAGES COMPLETED DATE/TIME: 10/16/2020 12:25 pm REASON FOR STUDY: (R06.00)DYSPNEA, UNSPECIFIED COMPARISON: 12/04/2019 EXAM PARAMETERS: NUMBER OF VIEWS: two views TECHNIQUE: Digital Frontal and Lateral radiographic views of the chest acquired. RADIATION DOSE: NA LIMITATIONS: none FINDINGS: LUNGS AND PLEURA: Mildly prominent bilateral perihilar interstitial markings, chronic tank fahad acute findings. No pneumothorax or pleural effusion. MEDIASTINUM AND HILAR STRUCTURES: On the lateral image, smooth slight extrinsic compression suggeste d on the posterior wall of the trachea above the kirk. HEART AND VASCULAR STRUCTURES: Heart normal size. No evidence for failure. BONES: No acute findings. HARDWARE: None in the chest. OTHER: No other significant finding. IMPRESSION: 1. Mildly prominent bilateral perihilar interstitial markings chronic versus superimpos ed acute findings. 2. No acute pulmonary consolidation. 3. On the lateral image, question of smooth slight extrinsic compression suggest on the posterior wa ll of the trachea above the kirk. Further evaluation with CT chest suggested. TECHNICAL DOCUMENTATION: JOB ID: [id number] [employer]- All Rights Reserved Reading location - IP/workstation name: [email or web address]
--- NOTE | 2020-10-16 12:51 | RADIOLOGY REPORT (SQ) ---
EXAM DESCRIPTION: L SPINE WHOLE IMAGES COMPLETED DATE/TIME: 10/16/2020 12:25 pm REASON FOR STUDY: (M54.5)LOW BACK PAIN R06.00 DYSPNEA, UNSPECIFIED R07.2 PRECORDIAL PAIN M54.5 LO W BACK PAIN COMPARISON: None. NUMBER OF VIEWS: Five views including obliques. TECHNIQUE: AP, lateral, oblique, and sacral radiographic images acquired of the lumbar spine. LIMITATIONS: None. FINDINGS: MINERALIZATION: Normal. SEGMENTATION: Normal. No transitional anatomy. ALIGNMENT: Minimal to slight dextroconvex scoliosis at the thoracolumbar junction. VERTEBRAE: Maintained height. No fracture or worrisome bone lesion. DISCS: Preserved height. No significant osteophytes or end plate irregularity. POSTERIOR ELEMENTS: Pedicles and facets are intact. No pars defect or posterior arch defects. HARDWARE: None in the spine. PARASPINAL SOFT TISSUES: Normal. PELVIS: Intact as visualized. No fractures or worrisome bone lesions. SI joints intact. OTHER: Mild atherosclerotic changes involving the abdominal aorta. IMPRESSION: 1. Minimal to slight dextroconvex scoliosis. No acute osseous findings. TECHNICAL DOCUMENTATION: JOB ID: [id number] [employer]- All Rights Reserved Reading location - IP/workstation name: [email or web address]
--- NOTE | 2020-10-16 13:22 | EKG REPORT ---
SEVERITY:- BORDERLINE ECG - SINUS RHYTHM PROBABLE LEFT ATRIAL ABNORMALITY LVH. : Confirmed by: Edinson Fontanez MD 16-Oct-2020 13:21:35
== END ==
LOC: RAD 11:38
PROVIDERS: ATTEND Family Medicine
DX: R07.2 Precordial pain (principal); M54.5 Low back pain; R06.00 Dyspnea, unspecified
CPT/HCPCS: 71046; 72110; 93005; 93010